=== PATIENT | male | born 2000 ===

== ENCOUNTER 2021-12-18 19:23 | Emergency (ER) | payer SELFPAY ==
[2021-12-18] MEDS ORDERED: Lidocaine 1% 5 ML VIAL INJECT ONE (20:35)
[2021-12-18] MEDS ORDERED: Diphtheria,Pertussis(Acell),Tetanus Vaccine 0.5 ML Syringe IM ONE (20:36)
== END 2021-12-18 21:22 | disposition home or self-care (01) ==
LOC: MW.ED 19:23
DX: S61.412A Laceration without foreign body of left hand, initial encounter (principal); Z23 Encounter for immunization; W26.8XXA Contact with other sharp object(s), not elsewhere classified, initial encounter
CPT/HCPCS: 12002; 90471; 90715; 99282-25